=== PATIENT | male | born 1960 | race Hispanic/Latino ===

== ENCOUNTER 2020-03-08 01:47 | Emergency (ER) | payer OTHER ==
--- OUTSIDE RECORDS SUMMARY | 2020-03-08 01:49 | XMS REPORT ---
:1960 Author Organization eClinicalWorks Care Team Providers Name Role Phone Bay Strong Provider Role Unavailable Allergies No Known Allergies Problems Problem Type Condition Code Onset Dates Condition Statu s Problem Primary osteoarthritis of left knee M17.12 Active Medications No Known Medications Results No Known Results Summary Purpose eClinicalWorks Submission
--- OUTSIDE RECORDS SUMMARY | 2020-03-08 01:49 | XMS REPORT ---
:1960 Author Organization eClinicalWorks Care Team Providers Name Role Phone [facility] Strong Provider Role Unavailable Allergies No Known Allergies Problems Problem Type Condition Code Onset Dates Condition Statu s Assessment Primary osteoarthritis of left knee M17.12 Active Problem Primary osteoarthritis of left knee M17.12 Active Medications No Known Medications Results No Known Results Summary Purpose eClinicalWorks Submission
--- OUTSIDE RECORDS SUMMARY | 2020-03-08 01:49 | XMS REPORT ---
:1960 Author Organization eClinicalWorks Care Team Providers Name Role Bay Casillas Provider Role Unavailable Allergies, Adverse Reactions, Alerts Substance Reaction Event Type N.K.D.A. Info Not Available Non Drug Allergy Problems Problem Type Condition Code Onset Dates Condition Statu s Assessment Pain, joint, knee, left M25.562 Acti ve Problem Primary osteoarthritis of left knee M17.12 Active Assessment Primary osteoarthritis of left knee M17.12 Active Medications Medication Code Code Instructions Start End Status Dosage System Date Date Ibuprofen [facility] 46964018169 800 MG Oral Active TAKE 1 TABLET BY MOUTH TWICE A DAY NEEDED FOR PAIN Proctosol HC [facility] 02274582273 2.5 % Rectal Active 1 APPLICATOR FULL PER RECTUM TWICE A DAY Phenytoin [facility] [id number] 100 MG Oral Active TAKE 2 Sodium CAPSULES IN Extended THE MORNING AND 1 CAPSULE EVERY PM Results No Known Results Summary Purpose eClinicalWorks Submission
--- OUTSIDE RECORDS SUMMARY | 2020-03-08 01:49 | XMS REPORT | Continuity of Care Document ---
:1960 Author Organization [facility] t Address [address] [place] [address] Care Team Providers Name Role Phone Unavailable Unavailable Unavailable Problems Condition Condition Condition Status Onset Resolution Last Treating Co mments Source Name Details Category Date Date Treatment Clinician Date Primary Primary Problem Active [facility] oste[facility] osteoarthr Rina [facility] left knee left knee l [facility] ent Clinics Allergies, Adverse Reactions, Alerts This patient has no known allergies or adverse reactions. Medications Ordered Filled Start Stop Current Ordering Indication Dosage Frequency Signature Comments Components Source Medication Medication Date Date Medication? Clinician (SIG) Name Name Ibuprofen Ibuprofen Yes Bay TAKE [address] [facility] TABLET BY [facility] MOUTH [facility] TWICE A l DAY Outpati NEEDED FOR ent PAIN Clinics Proctosol Proctosol Yes Bay [address] [facility] [address] [facility] APPLICATOR [facility] - FULL PER [facility] RECTUM l TWICE A Outpati DAY ent Clinics Phenytoin Phenytoin Yes Bay TAKE [address] [facility] Sodium Sodium Strong CAPSULES [facility] - Extended Extended IN THE Mem[facility] ia MORNING l AND 1 Outpati CAPSULE ent EVERY PM Clinics Procedures This patient has no known procedures. Encounters Start End Encounter Admission Attending Care Care Encounter Source Date/Time Date/Time Type Type Clinicians Facility Department ID 2019-12-31 2019-12-31 Outpatient Victorino Tony [id number] [facility] 11:[facility]:00 11:[facility] ent Clinics 2019-12-30 2019-12-30 Outpatient Victorino Tony [id number] [facility] 15:00:00 15:00[facility] ent Clinics 2019-12-16 2019-12-16 Outpatient Victorino Tony [id number] [facility] 13:50:00 13:50:00 [facility] Clinics 2019-12-14 2019-12-14 Outpatient Victorino Tony [id number] [facility] 11:12:00 11:12:00 [facility] Clinics 2019-12-07 2019-12-07 Outpatient Victorino Tony [id number] [facility] 12:41:00 12:41:00 [facility] Clinics Results This patient has no known results.
[2020-03-08] MEDS ORDERED: ONDANSETRON 4 MG/2 ML VIAL ONE (02:17)
[2020-03-08] MEDS ORDERED: MORPHINE 4 MG/ML SYR ONE (02:17)
[2020-03-08 02:37] LABS: Protime INR 0.97
[2020-03-08 02:40] LABS: Absolute Lymphocytes (CBC) 2.6 K/uL (0.7-4.9); Basophils % 0.5 % (0-1.3); Hematocrit 48.5 % (39.6-49.0); Lymphocytes % 27.3 % (15.3-44.8); MPV 8.5 fL (7.6-11.3); RBC Red Blood Cell Count 4.96 M/uL (4.33-5.43)
[2020-03-08 02:50] LABS: ALT/SGPT 24 U/L (12-78); AST/SGOT 13 U/L (15-37); Alkaline Phosphatase 76 U/L (45-117); BUN Blood Urea Nitrogen 13 mg/dL (7-18); Bicarbonate 25 mmol/L (21-32); Bilirubin Direct 0.1 mg/dL (0-0.2); Bilirubin Total 0.4 mg/dL (0.2-1.0); Glucose Level 128 mg/dL (74-106); Magnesium 2.3 mg/dL (1.8-2.4); NT PRO-BNP 20 pg/mL (<125); Potassium 3.6 mmol/L (3.5-5.1); Protein, Total 7.9 g/dL (6.4-8.2); Sodium Level 142 mmol/L (136-145); Troponin (Emerg Dept Use Only) < 0.02 ng/mL (0.0-0.045)
--- NOTE | 2020-03-08 06:05 | ER ---
Nurse's Notes [facility] Name: James Pickens Age: 59 yrs Sex: Male : 1960 Arrival Date: 03/08/2020 Time: 01:51 Bed 19 Private MD: Pamela Mcclure H Diagnosis: Chest pain, unspecified;Chest Wall Pain Presentation: 03/08 01:54 Chief complaint: Patient states: Chest pain, reports waking up with worse pain, denies sg N/V/D/Fever, reports feeling chills, reports laying flat makes the pain worse, states that standing is the position of most comfort. Coronavirus screen: Proceed with normal triage. Ebola Screen: Patient negative for fever greater than or equal to 101.5 degrees Fahrenheit, and additional compatible Ebola Virus Disease symptoms Patient denies exposure to infectious person. Patient denies travel to an Ebola-affected area in the 21 days before illness onset. No symptoms or risks identified at this time. Initial Sepsis Screen:. Risk Assessment: Do you want to hurt yourself or someone else? Patient reports no desire to harm self or others. Onset of symptoms was March 08, 2020. Care prior to arrival: None. Transition of care: patient was not received from another setting of care. 01:54 Method Of Arrival: Ambulatory sg 01:54 Acuity: JUAREZ 3 sg 02:00 Initial Sepsis Screen: Does the patient meet any 2 criteria? No. Patient's initial wh sepsis screen is negative. Does the patient have a suspected source of infection? No. Patient's initial sepsis screen is negative. Historical: - Allergies: :54 No Known Allergies; sg - Home Meds: :54 Dilantin Oral [Active]; sg - PMHx: :54 Seizures; sg - PSHx: :54 Toe Sx; sg - Immunization history:: Adult Immunizations up to date. - Social history:: Smoking status: Patient denies any tobacco usage or history of. Screenin:10 Abuse screen: Denies threats or abuse. Denies injuries from another. Nutritional rr5 screening: No deficits noted. Tuberculosis screening: No symptoms or risk factors identified. Fall Risk IV access (20 points). Total Cabral Fall Scale indicates No Risk (0-24 pts). Assessment: 02:00 General: Appears in no apparent distress. uncomfortable, Behavior is calm, cooperative, rr5 appropriate for age, Reports chills for. 02:00 Pain: Complains of pain in chest Pain currently is 10 out of 10 on a pain scale. rr5 Quality of pain is described as aching, Pain began gradually, Is intermittent. Neuro: Level of Consciousness is awake, alert, obeys commands, Oriented to person, place, time, situation. Cardiovascular: Reports chest pain, Capillary refill < 3 seconds Patient's skin is warm and dry. Respiratory: Airway is patent Respiratory effort is even, unlabored, Respiratory pattern is regular, symmetrical. GI: No signs and/or symptoms were reported involving the gastrointestinal system. : No signs and/or symptoms were reported regarding the genitourinary system. EENT: No signs and/or symptoms were reported regarding the EENT system. Derm: Skin is intact, is healthy with good turgor, Skin temperature is warm. Musculoskeletal: Circulation, motion, and sensation intact. Capillary refill < 3 seconds. 02:58 Reassessment: Patient appears in no apparent distress at this time. Patient is alert, rr5 oriented x 3, equal unlabored respirations, skin warm/dry/pink. for CT scan Patient states feeling better. Patient states symptoms have improved. 04:00 Reassessment: Patient appears in no apparent distress at this time. Patient and/or family updated on plan of care and expected duration. Pain level reassessed. Patient is alert, oriented x 3, equal unlabored respirations, skin warm/dry/pink. 05:00 Reassessment: Patient appears in no apparent distress at this time. No changes from previously documented assessment. Patient and/or family updated on plan of care and expected duration. Pain level reassessed. Patient is alert, oriented x 3, equal unlabored respirations, skin warm/dry/pink. Explained need for 3 hour repeat Trop. 06:00 Reassessment: Patient appears in no apparent distress at this time. No changes from previously documented assessment. Patient and/or family updated on plan of care and expected duration. Pain level reassessed. Patient is alert, oriented x 3, equal unlabored respirations, skin warm/dry/pink. Patient states feeling better. Patient states symptoms have improved. Vital Signs: 02:00 BP 123 / 71; Pulse 83; Resp 19; Temp 98.2; Pulse Ox 100% ; Weight 99.34 kg; Height 6 rr5 ft. 0 in. (182.88 cm); Pain 10/10; 03:00 BP 113 / 62; Pulse 75; Resp 16; Pulse Ox 99% ; Pain 3/10; rr5 04:00 BP 111 / 56; Pulse 66; Resp 18; Pulse Ox 98% ; wh 05:00 BP 101 / 63; Pulse 63; Resp 18; Pulse Ox 99% on R/A; wh 06:00 BP 102 / 88; Pulse 72; Resp 18; Pulse Ox 100% on R/A; wh 02:00 Body Mass Index 29.70 (99.34 kg, 182.88 cm) rr5 ED Course: 01:51 Patient arrived in ED. es 01:51 Pamela Mcclure DO is Private Physician. es 01:54 Arm band placed on. sg 01:56 Ziggy Barth, RN is Primary Nurse. rr5 01:56 Triage completed. sg 01:57 Thomas Talavera MD is Attending Physician. 7 01:59 EKG done, by ED staff, reviewed by Thomas Talavera MD. sg 02:00 Inserted saline lock: 20 gauge in right forearm, using aseptic technique. Blood rr5 collected. 02:00 No provider procedures requiring assistance completed. Patient maintains SpO2 rr5 saturation greater than 95% on room air. 02:10 Patient has correct armband on for positive identification. Bed in low position. Call rr5 light in reach. trawl net maker on. Pulse ox on. NIBP on. 02:22 XRAY Chest (1 view) In Process Unspecified. EDMS 03:36 CT Chest For PE Angio In Process Unspecified. EDMS 06:12 IV discontinued, intact, bleeding controlled, No redness/swelling at site. Administered Medications: 02:13 Drug: Zofran (Ondansetron) 4 mg Route: IVP; Site: right forearm; rr5 04:54 Follow up: Response: No adverse reaction; Nausea is decreased 02:15 Drug: morphine 4 mg {Note: rass 0.} Route: IVP; Site: right forearm; rr5 04:55 Follow up: Response: No adverse reaction; Pain is decreased; RASS: Alert and Calm (0) Outcome: 06:05 Discharge ordered by MD. mh7 06:12 Discharged to home ambulatory. 06:12 Condition: stable 06:12 Discharge instructions given to patient, Instructed on discharge instructions, follow up and referral plans. no drinking with medication, no driving heavy equipment, medication usage, POC Demonstrated understanding of instructions, follow-up care, medications, POC Prescriptions given X 1. 06:13 Patient left the ED. Signatures: Dispatcher [employer] EDYaw Sandhu RN RN sg Salyer, Edna es Habalo, Winsy Ziggy Barth RN RN rr5 Thomas Talavera MD MD 7 Corrections: (The following items were deleted from the chart) 02:41 02:00 General: Appears in no apparent distress. uncomfortable, Behavior is calm, rr5 cooperative, appropriate for age, rr5
--- NOTE | 2020-03-08 06:06 | EDPHYS ---
Physician Documentation [facility] Name: James Pickens Age: 59 yrs Sex: Male : 1960 Arrival Date: 03/08/2020 Time: 01:51 Bed 19 Private MD: Pamela Mcclure H ED Physician Thomas Talavera HPI: 03/08 02:08 This 59 yrs old Male presents to ER via Ambulatory with complaints of Chest mh7 Pain. 02:08 The patient or guardian reports chest pain that is located primarily in the anterior mh7 chest wall, right. Onset: yesterday. The pain does not radiate. Associated signs and symptoms: Pertinent negatives: abdominal pain, cough, diaphoresis, dizziness, headache, lower extremity pain, lower extremity swelling, lightheadedness, nausea, near syncope, palpitations, recent travel, shortness of breath, syncope, vomiting. The chest pain is described as sharp. Duration: The patient or guardian reports multiple episodes, that are intermittent, that wax and wane, with no pattern. Modifying factors: The symptoms are alleviated by nothing. the symptoms are aggravated by movement. Severity of pain: At its worst the pain was moderate today, in the emergency department the pain has improved mildly. 06:26 States that pain started after lifting a toy car but got worse later. Pain worse with mh7 movement of his body and his right arm.. Historical: - Allergies: 01:54 No Known Allergies; sg - Home Meds: 01:54 Dilantin Oral [Active]; sg - PMHx: 01:54 Seizures; sg - PSHx: 01:54 Toe Sx; sg - Immunization history:: Adult Immunizations up to date. - Social history:: Smoking status: Patient denies any tobacco usage or history of. ROS: 02:08 Constitutional: Negative for fever, chills, and weight loss, Eyes: Negative for injury, mh7 pain, redness, and discharge, ENT: Negative for injury, pain, and discharge, Neck: Negative for injury, pain, and swelling, Respiratory: Negative for shortness of breath, cough, wheezing, and pleuritic chest pain, Abdomen/GI: Negative for abdominal pain, nausea, vomiting, diarrhea, and constipation, Back: Negative for injury and pain, : Negative for injury, bleeding, discharge, and swelling, MS/Extremity: Negative for injury and deformity, Skin: Negative for injury, rash, and discoloration, Neuro: Negative for headache, weakness, numbness, tingling, and seizure, Psych: Negative for depression, anxiety, suicide ideation, homicidal ideation, and hallucinations, Allergy/Immunology: Negative for hives, rash, and allergies, Endocrine: Negative for neck swelling, polydipsia, polyuria, polyphagia, and marked weight changes, Hematologic/Lymphatic: Negative for swollen nodes, abnormal bleeding, and unusual bruising. Exam: 02:08 Constitutional: This is a well developed, well nourished patient who is awake, alert, mh7 and in no acute distress. Head/Face: Normocephalic, atraumatic. Eyes: Pupils equal round and reactive to light, extra-ocular motions intact. Lids and lashes normal. Conjunctiva and sclera are non-icteric and not injected. Cornea within normal limits. Periorbital areas with no swelling, redness, or edema. Neck: Trachea midline, no thyromegaly or masses palpated, and no cervical lymphadenopathy. Supple, full range of motion without nuchal rigidity, or vertebral point tenderness. No Meningismus. 02:08 Cardiovascular: Regular rate and rhythm with a normal S1 and S2. No gallops, murmurs, or rubs. Normal PMI, no JVD. No pulse deficits. Respiratory: Lungs have equal breath sounds bilaterally, clear to auscultation and percussion. No rales, rhonchi or wheezes noted. No increased work of breathing, no retractions or nasal flaring. Abdomen/GI: Soft, non-tender, with normal bowel sounds. No distension or tympany. No guarding or rebound. No evidence of tenderness throughout. Back: No spinal tenderness. No costovertebral tenderness. Full range of motion. Skin: Warm, dry with normal turgor. Normal color with no rashes, no lesions, and no evidence of cellulitis. MS/ Extremity: Pulses equal, no cyanosis. Neurovascular intact. Full, normal range of motion. Neuro: Awake and alert, GCS 15, oriented to person, place, time, and situation. Cranial nerves II-XII grossly intact. Motor strength 5/5 in all extremities. Sensory grossly intact. Cerebellar exam normal. Normal gait. Psych: Awake, alert, with orientation to person, place and time. Behavior, mood, and affect are within normal limits. 02:08 Chest/axilla: Inspection: normal, Palpation: tenderness, that is mild, of the anterior aspect of right upper chest, that partially reproduces the patient's complaints, Axilla: are normal, Lymph nodes: lymphadenopathy is not appreciated. 02:08 ECG was reviewed by the Attending Physician. Vital Signs: 02:00 BP 123 / 71; Pulse 83; Resp 19; Temp 98.2; Pulse Ox 100% ; Weight 99.34 kg; Height 6 rr5 ft. 0 in. (182.88 cm); Pain 10/10; 03:00 BP 113 / 62; Pulse 75; Resp 16; Pulse Ox 99% ; Pain 3/10; rr5 04:00 BP 111 / 56; Pulse 66; Resp 18; Pulse Ox 98% ; wh 05:00 BP 101 / 63; Pulse 63; Resp 18; Pulse Ox 99% on R/A; wh 06:00 BP 102 / 88; Pulse 72; Resp 18; Pulse Ox 100% on R/A; wh 02:00 Body Mass Index 29.70 (99.34 kg, 182.88 cm) rr5 MDM: 02:07 Patient medically screened. mh7 06:00 Differential diagnosis: acute myocardial infarction, acute pericarditis, coronary mh7 artery disease chest wall pain, congestive heart failure esophagitis, myocarditis, pneumonia, pneumothorax, pulmonary embolus. HEART Score: History: Slightly Suspicious (0), ECG: Non specific repolarization disturbance / LBTB / PM (1), Age: > 45 and < 65 years (1), Risk Factors: No Risk Factors Known (0), Troponin: < or = 1 x Normal Limit (0), Total Score = 2. Data reviewed: vital signs, nurses notes, lab test result(s), cardiac enzymes, CBC, electrolytes, urinalysis, EKG, radiologic studies, CT scan, plain films. Data interpreted: petroleum inspector: rate is 63 beats/min, rhythm is normal sinus rhythm, regular, Interpretation: normal rate, normal rhythm, Pulse oximetry: on room air is 99 %. Interpretation: normal. Counseling: I had a detailed discussion with the patient and/or guardian regarding: the historical points, exam findings, and any diagnostic results supporting the discharge/admit diagnosis, lab results, radiology results, the need for outpatient follow up, to return to the emergency department if symptoms worsen or persist or if there are any questions or concerns that arise at home. 06:25 Response to treatment: the patient's symptoms have resolved after treatment, the [facility] patient's blood pressure is in an acceptable range, mental status has returned to baseline, the patient no longer shows bradycardia, the patient is not short of breath, the patient is not tachycardic, the patient's pain is gone, the patient's temperature has normalized. 03/08 02:07 Order name: Basic Metabolic Panel; Complete Time: 02:53 rr5 03/08 02:07 Order name: CBC with Diff; Complete Time: 03:10 rr5 03/08 02:07 Order name: LFT's; Complete Time: 02:53 rr5 03/08 02:07 Order name: Magnesium; Complete Time: 02:53 rr5 03/08 02:07 Order name: NT PRO-BNP; Complete Time: 02:53 rr5 03/08 02:07 Order name: PT-INR; Complete Time: 02:53 rr 03/08 02:06 Order name: EKG; Complete Time: 02:07 sg 03/08 02:07 Order name: Troponin (emerg Dept Use Only); Complete Time: 02:53 rr5 03/08 02:07 Order name: XRAY Chest (1 view) [facility] 03/08 02:07 Order name: Cardiac monitoring; Complete Time: 02:12 rr5 03/08 02:56 Order name: CT Chest For PE Angio [facility] 03/08 04:54 Order name: Troponin (emerg Dept Use Only) 03/08 02:07 Order name: EKG - Nurse/Tech; Complete Time: 02:12 rr03/08 02:07 Order name: IV Saline Lock; Complete Time: 02:12 rr5 03/08 02:07 Order name: Labs collected and sent; Complete Time: 02:12 rr5 03/08 02:07 Order name: O2 Per Protocol; Complete Time: 02:12 rr03/08 02:07 Order name: O2 Sat Monitoring; Complete Time: 02:13 rr5 EC:08 Rate is 80 beats/min. Rhythm is regular, Normal Sinus Rhythm. QRS Campbell is Normal. ID mh7 interval is normal. QRS interval is normal. QT interval is normal. No Q waves. T waves are Flattened in leads II, III, aVF, V6. No ST changes noted. Clinical impression: NSR w/ Non-specific ST/T Changes. Administered Medications: 02:13 Drug: Zofran (Ondansetron) 4 mg Route: IVP; Site: right forearm; rr5 04:54 Follow up: Response: No adverse reaction; Nausea is decreased 02:15 Drug: morphine 4 mg {Note: rass 0.} Route: IVP; Site: right forearm; rr5 04:55 Follow up: Response: No adverse reaction; Pain is decreased; RASS: Alert and Calm (0) Disposition: 03/08/20 06:05 Discharged to Home. Impression: Chest pain, unspecified, Chest Wall Pain. - Condition is Stable. - Discharge Instructions: Chest Wall Pain, [id number], Nonspecific Chest Pain, [id number]. - Prescriptions for Tramadol 50 mg Oral Tablet - take 1 tablet by ORAL route every 8 hours as needed; 12 tablet. - Medication Reconciliation Form, Thank You Letter, Antibiotic Education, Prescription Opioid Use form. - Follow up: Private Physician; When: 1 - 2 days; Reason: Worsening of condition, Recheck today's complaints, Re-evaluation by your physician. - Problem is an ongoing problem. - Symptoms have improved. Signatures: Dispatcher [employer] EDMS Yaw Dickey, RN HELEN Danuta Joyner Ziggy Barth RN RN rr5 Thomas Talavera MD MD mh7 Corrections: (The following items were deleted from the chart) 06:13 06:05 03/08/2020 06:05 Discharged to Home. Impression: Chest pain, unspecified; Chest wh Wall Pain. Condition is Stable. Forms are Medication Reconciliation Form, Thank You Letter, Antibiotic Education, Prescription Opioid Use. Follow up: Private Physician; When: 1 - 2 days; Reason: Worsening of condition, Recheck today's complaints, Re-evaluation by your physician. Problem is an ongoing problem. Symptoms have improved. mh7
[2020-03-08 06:23] VITALS: TEMP 98.2
[2020-03-08 06:29] VITALS: BP 102/88; O2SAT 100
--- NOTE | 2020-03-08 06:53 | EKG ---
Test Date: 2020-03-08 Test Time: 01:56:58 Film And Video Editor: RICHA MEASUREMENT RESULTS: Intervals: Rate: 80 WV: 136 QRSD: 78 QT: 368 QTc: 424 Freedom: P: 29 WV: 136 QRS: -16 T: 13 INTERPRETIVE STATEMENTS: Normal sinus rhythm Nonspecific T wave abnormality Abnormal ECG Compared to ECG 06/13/2000 12:50:00 T-wave abnormality now present Electronically Signed On 03-08-20 06:53:10 CDT by Niko Lemos
--- NOTE | 2020-03-08 08:14 | RAD REPORT ---
EXAM DESCRIPTION: RAD - Chest Single View - 03/08/2020 2:22 am CLINICAL HISTORY: CHEST PAIN COMPARISON: Two view chest October 2013 TECHNIQUE: AP portable chest image was obtained 03/08/2020 2:22 am . FINDINGS: No focal lung parenchymal process. Interstitial pattern matches comparison when you just f or the more shallow inspiratory effort on the current examination. Heart and vasculature are normal. No measurable pleural effusion and no pneumothorax. No acute bony abnormality seen. No acute aortic f inding. The patient has a very large hiatal hernia which exaggerates cardiac silhouette. IMPRESSION: No acute cardiopulmonary process. No worrisome change from comparison.
--- NOTE | 2020-03-08 10:43 | RAD REPORT ---
EXAM DESCRIPTION: CT - Chest For Pe Angio - 03/08/2020 7:05 am CLINICAL HISTORY: CHEST PAIN COMPARISON: None. TECHNIQUE: CT CHEST ANGIOGRAPHY WITH IV CONTRAST on 03/08/2020 2:56 AM CDT. MIPS reconstructions were generated. This exam was performed according to our departmental dose-optimization program, which includes autom ated exposure control, adjustment of the mA and/or kV according to patient size and/or use of iterati ve reconstruction technique. MIP images were generated. FINDINGS: Thoracic aorta is normal in course and caliber without aneurysm or dissection. Pulmonary a rteries are adequately opacified without acute or chronic filling defects. The heart is normal in size. There is no pericardial effusion. Intrathoracic lymph nodes are not enla rged. There is no pleural effusion, pleural thickening or pneumothorax. Central airways are patent. Lungs a re clear with no consolidation, mass or interstitial lung disease. There is a large hiatal hernia containing much of the stomach. There are no acute osseous findings. No suspicious bony lesions. IMPRESSION: No aortic dissection or aneurysm. No pulmonary embolus. No pneumonia. Large hiatal hernia. Electronically signed by: Joe Curtis MD 03/08/2020 3:42 AM CDT Due to temporary technical issues with the PACS/Fluency reporting system, reports are being signed by the in house radiologist without review as a courtesy to ensure prompt reporting. The interpreting r adiologist is fully responsible for the content of the report.
== END 2020-03-08 06:13 | disposition home or self-care (01) ==
LOC: ER 01:47
DX: R07.89 Other chest pain (principal)
CPT/HCPCS: 93005; 85025; 80048; 36415; 83735; 85610; 80076; 84484 ×2; 83880; 71275; 71045; 96375; 96374; 99285; Q9967; J2405

== ENCOUNTER 2021-09-11 11:21 | Emergency (ER) | payer OTHER ==
--- OUTSIDE RECORDS SUMMARY | 2021-09-11 11:23 | XMS REPORT | Continuity of Care Document ---
:1960 Author Organization [facility] t Address [address] [place] [address] Care Team Providers Name Role Phone Unavailable Unavailable Unavailable Problems This patient has no known problems. Allergies, Adverse Reactions, Alerts This patient has [...] Date/Time Type Type Clinicians Facility Department ID 2020-11-06 2020-11-06 Outpatient [facility] [id number] [facility] 2019-12-31 2019-12-31 Outpatient Victorino Tony [id number] [facility] 11:41:00 11:[facility]00 [facility]ics 2019-12-30 2019-12-30 Outpatient Victorino Tony [id number] [facility] 15:00:00 15:00:00 [facility] Clinics 2019-12-16 2019-12-16 Outpatient Victorino Tony [id number] [facility] 13:50:00 13:50:00 [facility] Clinics 2019-12-14 2019-12-14 Outpatient Victorino Tony [id number] [facility] 11:12:00 11:12:00 [facility] Clin[facility] 2019-12-07 2019-12-07 Outpatient Victorino Tony [id number] [facility] 12:41:00 12:41:00 [facility] Results This patient has no known results.
--- NOTE | 2021-09-11 13:16 | RAD REPORT ---
EXAM DESCRIPTION: CT - Head Brain Wo Cont - 09/11/2021 12:54 pm CLINICAL HISTORY: HEADACHE COMPARISON: MRI BRAIN W WO CONTRAST dated 11/14/2011 TECHNIQUE: Axial 5 mm thick images of the head were obtained without IV contrast. All CT scans are performed using dose optimization technique as appropriate and may include automated exposure control or mA/KV adjustment according to patient size. FINDINGS: No intracranial hemorrhage, mass, edema or shift of mid-line structures. No acute cortical based infarction. No cortical edema or sulcal effacement. Encephalomalacia changes are present at th e right side frontal parietal junction extending inferiorly into the right temporal lobe. Right later al ventricle has enlarged in proportion to the amount of encephalomalacia. These are findings stable from 2012. No abnormal extra-axial fluid collections. Arterial and physiologic calcifications are pre sent. Mastoid air cells and visualized portions of the paranasal sinuses are clear. No acute bony findings. IMPRESSION: No hemorrhage, acute cortical based infarction or other acute intracranial finding. Encephalomalacia changes in the right frontoparietal junction extending into the temporal lobe unchan ged from 2011.
[2021-09-11 15:05] LABS: SARS-COV-2 RT PCR NEGATIVE (NEGATIVE)
--- NOTE | 2021-09-11 15:13 | EDPHYS ---
Physician Documentation [facility] Name: James Pickens Age: 61 yrs Sex: Male : 1960 Arrival Date: 09/11/2021 Time: 11:27 Bed 10 Private MD: Pamela Mcclure H ED Physician Max Cesar HPI: 09/11 15:07 This 61 yrs old Male presents to ER via Ambulatory with complaints of Headache.rn 15:07 The patient complains of pain to the top of head and forehead. The patient describes rn the headache as aching. 15:07 Onset: The symptoms/episode began/occurred 2 day(s) ago. Associated signs and symptoms: rn Pertinent negatives: altered mental status, neck stiffness, rash, vision changes, vision loss, vomiting, weakness, vertigo. Severity of symptoms: At its worst the pain was moderate, in the emergency department the pain has improved. Headache History: The patient has had previous headaches and this one is similar to previous episodes. The symptoms are alleviated by nothing. the symptoms are aggravated by nothing. The patient has experienced similar episodes in the past. The patient has not recently seen a physician. Patient reports headache for the last 2 days, no trauma, no objective fever. 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 Reports pressure to head that is worse when squeezing his head. Onset of headache was while using anal vibrator. No focal neurological deficits. Seen by [facility] and told to come to ER.. Historical: - Allergies: 11:35 No Known Allergies; [facility] - Home Meds: 12:40 Phenytoin 100mg Oral 3 tabs nightly for epilepsy [Active]; eo2 - PMHx: 12:40 Seizure; Pt reports hx of epilepsy; eo2 - Immunization history:: Client reports receiving the 2nd dose of the Covid vaccine. - Social history:: Smoking status: unknown Patient uses alcohol, occasionally. street drugs, marijuana. - Family history:: not pertinent. - Hospitalizations: : No recent hospitalization is reported. ROS: 15:07 Constitutional: Negative for chills, and weight loss, Eyes: Negative for injury, pain, rn redness, and discharge, ENT: Negative for injury, pain, and discharge, Neck: Negative for injury, pain, and swelling, Cardiovascular: Negative for chest pain, palpitations, and edema, Respiratory: Negative for shortness of breath, cough, wheezing, and pleuritic chest pain, Abdomen/GI: Negative for abdominal pain, nausea, vomiting, diarrhea, and constipation, Back: Negative for injury and pain, : Negative for injury, bleeding, discharge, and swelling, MS/Extremity: Negative for injury and deformity, Skin: Negative for injury, rash, and discoloration, Neuro: Negative for weakness, numbness, tingling, and seizure. Exam: 15:07 Constitutional: This is a well developed, well nourished patient who is awake, alert, rn and in no acute distress. Head/Face: Normocephalic, atraumatic. Eyes: Periorbital areas with no swelling, redness, or edema. Neck: Trachea midline, no thyromegaly or masses palpated, and no cervical lymphadenopathy. Supple, full range of motion without nuchal rigidity, or vertebral point tenderness. No Meningismus. Cardiovascular: Regular rate and rhythm. No pulse deficits. Respiratory: No increased work of breathing, no retractions or nasal flaring. Abdomen/GI: Soft, non-tender Skin: Warm, dry MS/ Extremity: Pulses equal, no cyanosis. Neuro: Awake and alert, GCS 15, oriented to person, place, time, and situation. Cranial nerves II-XII grossly intact. Motor strength 5/5 in all extremities. Sensory grossly intact. Vital Signs: 11:31 BP 138 / 93; Pulse 77; Resp 17; Temp 98.3(T); Pulse Ox 100% ; Weight 98.43 kg; Height 6 [facility] ft. 0 in. (182.88 cm); Pain 0/10; 13:42 BP 126 / 91; Pulse 78; Resp 16; Temp 97.9(O); Pulse Ox 100% ; Pain 3/10; eo2 15:37 BP 115 / 77; Pulse 68; Resp 15; Temp 98.2; Pulse Ox 98% ; Pain 0/10; eo2 11:31 Body Mass Index 29.43 (98.43 kg, 182.88 cm) jh6 Janine Coma Score: 12:26 Eye Response: spontaneous(4). Verbal Response: oriented(5). Motor Response: obeys eo2 commands(6). Total: 15. 15:07 Eye Response: spontaneous(4). Verbal Response: oriented(5). Motor Response: obeys rn commands(6). Total: 15. MDM: 12:31 Patient medically screened. rn 15:07 Differential diagnosis: hypertensive headache, migraine, neoplasm, tension headache, rn trigeminal neuralgia, vasomotor headache. Data reviewed: vital signs, nurses notes, lab test result(s), radiologic studies, CT scan, and as a result, I will discharge patient. Counseling: I had a detailed discussion with the patient and/or guardian regarding: the historical points, exam findings, and any diagnostic results supporting the discharge/admit diagnosis, lab results, radiology results, the need for outpatient follow up, to return to the emergency department if symptoms worsen or persist or if there are any questions or concerns that arise at home. Special discussion: I discussed with the patient/guardian in detail that at this point there is no indication for admission to the hospital. It is understood, however, that if the symptoms persist or worsen the patient needs to return immediately for re-evaluation. 09/11 12:41 Order name: CT Head Brain wo Cont; Complete Time: 13:25 rn 09/11 12:41 Order name: Strep; Complete Time: 14:46 rn 09/11 14:23 Order name: COVID-19/FLU A+B; Complete Time: 15:06 EDMS 09/11 14:34 Order name: Throat Culture EDMS Administered Medications: No medications were administered Disposition Summary: 09/11/21 15:12 Discharge Ordered Location: Home rn Problem: new rn Symptoms: have improved rn Condition: Stable rn Diagnosis - Headache rn Followup: rn - With: Private Physician - When: As needed - Reason: Recheck today's complaints, Re-evaluation by your physician Discharge Instructions: - Discharge Summary Sheet rn - General Headache Without Cause rn Forms: - Medication Reconciliation Form rn - Thank You Letter rn - Antibiotic video intern - Prescription Opioid Use rn Signatures: Dispatcher [employer] EDMS Max Cesar MD MD rn Hastedt, Jennifer, RN RN 6 Gricel Santos RN RN eo2 Corrections: (The following items were deleted from the chart) 11:36 11:35 PMHx: Seizures; [place] [id number] 14:23 12:42 Influenza Screen (A \T\ B)+BA.LAB.BRZ ordered. EDMS EDMS 14:23 12:42 CORONAVIRUS+MR.BJ.BART ordered. EDMS EDMS
--- NOTE | 2021-09-11 15:13 | ER ---
Nurse's Notes [facility] Name: James Pickens Age: 61 yrs Sex: Male : 1960 Arrival Date: 09/11/2021 Time: 11:27 Bed 10 Private MD: Pamela Mcclure H Diagnosis: Headache Presentation: 09/11 11:31 Chief complaint: Patient states: pt states that he has had pain to his head x 2 days. jh6 states low grade fever but no other fls. Coronavirus screen: Vaccine status: Patient reports receiving the 2nd dose of the covid vaccine. Ebola Screen: No symptoms or risks identified at this time. Initial Sepsis Screen: Does the patient meet any 2 criteria? No. Patient's initial sepsis screen is negative. Does the patient have a suspected source of infection? No. Patient's initial sepsis screen is negative. Risk Assessment: Do you want to hurt yourself or someone else? Patient reports no desire to harm self or others. Onset of symptoms was September 09, 2021. 11:31 Method Of Arrival: Ambulatory [facility] 11:31 Acuity: JUAREZ 4 [facility] Triage Assessment: 11:36 Headache History: Denies prior headaches. General: Appears in no apparent distress. [facility] distressed, Behavior is calm, cooperative. Pain: Complains of pain in face Pain does not radiate. Pain currently is 0 out of 10 on a pain scale. Quality of pain is described as aching, Pain began 2-3 days ago. Also complains of no other associated symptoms. Neuro: No deficits noted. Historical: - Allergies: 11:35 No Known Allergies; [facility] - Home Meds: 12:40 Phenytoin 100mg Oral 3 tabs nightly for epilepsy [Active]; eo2 - PMHx: 12:40 Seizure; Pt reports hx of epilepsy; eo2 - Immunization history:: Client reports receiving the 2nd dose of the Covid vaccine. - Social history:: Smoking status: unknown Patient uses alcohol, occasionally. street drugs, marijuana. - Family history:: not pertinent. - Hospitalizations: : No recent hospitalization is reported. Screenin:26 Abuse screen: Denies threats or abuse. Nutritional screening: No deficits noted. eo2 Tuberculosis screening: No symptoms or risk factors identified. Fall Risk None identified. Assessment: 12:26 General: Appears in no apparent distress. comfortable. Pain: Complains of pain in head eo2 Pain level that patient reports is acceptable is 3 out of 10 on a pain scale. Pain began 2-3 days ago. Neuro: Reports headache in entire Per pt, " I used my anal vibrator Friday morning, and Friday night I started having a headache". Pt states he also had a "low grade fever-99.1 yesterday and took two tylenols" Pt states he spoke with a telehealth provider who advised him to get checked for "bacteria in my blood and a scan of my head" Pt denies N/V/D, CP,SOB. Speech clear, tongue midline, equal strength to all extremities, ambulated to room from triage. Cardiovascular: No deficits noted. Heart tones S1 S2. Respiratory: No deficits noted. Breath sounds are clear bilaterally. GI: Reports acid reflux episode 3 weeks ago, states he's uncertain if this is also causing his headache. EENT: Reports increased ear wax. Vital Signs: 11:31 BP 138 / 93; Pulse 77; Resp 17; Temp 98.3(T); Pulse Ox 100% ; Weight 98.43 kg; Height 6 [facility] ft. 0 in. (182.88 cm); Pain 0/10; 13:42 BP 126 / 91; Pulse 78; Resp 16; Temp 97.9(O); Pulse Ox 100% ; Pain 3/10; eo2 15:37 BP 115 / 77; Pulse 68; Resp 15; Temp 98.2; Pulse Ox 98% ; Pain 0/10; eo2 11:31 Body Mass Index 29.43 (98.43 kg, 182.88 cm) [facility] Dawson Coma Score: 12:26 Eye Response: spontaneous(4). Verbal Response: oriented(5). Motor Response: obeys eo2 commands(6). Total: 15. 15:07 Eye Response: spontaneous(4). Verbal Response: oriented(5). Motor Response: obeys rn commands(6). Total: 15. ED Course: 11:27 Patient arrived in ED. mr 11:27 Pamela Mcclure DO is Private Physician. mr 11:35 Triage completed. [facility] 11:36 Arm band placed on right wrist. [facility] 12:12 Gricel Santos, HELEN is Primary Nurse. eo2 12:26 Patient has correct armband on for positive identification. Bed in low position. Call eo2 light in reach. Door closed. Noise minimized. 12:31 Max Cesar MD is Attending Physician. rn 12:53 CT Head Brain wo Cont In Process Unspecified. EDMS 13:04 Strep Sent. eo2 13:43 Pulse ox on. NIBP on. mh5 14:28 Strep Sent. eo2 14:28 COVID-19/FLU A+B Sent. eo2 15:36 No provider procedures requiring assistance completed. Patient did not have IV access eo2 during this emergency room visit. Administered Medications: No medications were administered Outcome: 15:12 Discharge ordered by MD. rn 15:36 Discharged to home ambulatory. eo2 15:36 Condition: stable 15:36 Discharge instructions given to patient, Instructed on discharge instructions, follow up and referral plans. Demonstrated understanding of instructions, follow-up care. 15:38 Patient left the ED. eo2 Signatures: Dispatcher [employer] EDKS Virginia Curry mr Max Cesar MD MD rn Martinez, Maria [facility] Kristi Montano RN RN [facility] Gricel Santos RN RN eo2 Corrections: (The following items were deleted from the chart) 11:36 11:35 PMHx: Seizures; [place] [id number] 14:23 13:04 CORONAVIRUS+MR.LAB.BRZ drawn and sent. eo2 EDMS 14:23 13:04 Influenza Screen (A \\T\\ B)+BA.LAB.BRZ drawn and sent. eo2 EDMS 14:50 13:42 BP 126 / 91; Pulse 78bpm; Resp 16bpm; Pulse Ox 100%; Temp 97.9F Oral; 5 eo2 14:51 12:26 Neuro: Reports headache in entire Per pt, " I used my anal vibrator Friday eo2 morning, and day night I started having a headache". Pt states she also had a "low grade fever-99.1 yesterday and took two tylenols" Pt states he spoke with a telehealth provider who advised him to get checked for "bacteria in my blood and a scan of my head" Pt denies N/V/D, CP,SOB. Speech clear, tongue midline, equal strength to all extremities, ambulated to room from triage eo2
[2021-09-11 15:45] VITALS: BP 115/77; TEMP 98.2; O2SAT 98
== END 2021-09-11 15:38 | disposition home or self-care (01) ==
LOC: ER 11:21
DX: R51.9 Headache, unspecified (principal); Z20.822 Contact with and (suspected) exposure to COVID-19
CPT/HCPCS: 87070; 87081; 0240U; 70450; 99284

== ENCOUNTER 2024-02-20 09:53 | Emergency (ER) | payer OTHER ==
--- OUTSIDE RECORDS SUMMARY | 2024-02-20 09:56 | XMS REPORT | Continuity of Care Document ---
Author Name Unknown Address [address] [facility] [place]. [address] [place] [address] [facility] Address [address] [facility]. [address] [place] [address] Care Team Providers Care Automotive Service Advisor Name Role Phone Pamela Mcclure Primary Care Physician [phone] Pamela Mcclure Attending Clinician Unavailable Gennaro Attending Clinician Unavail able Og Dick S Attending Clinician Unavailab Frankie Dc PA-C Attending Clinician [phone] FRANKIE JOSHI Attending Clinician Unavailable Unknown, Attending Attending Clinician Unavailab le Doctor Unassigned, [place] Attending Clinician U navailable Pamela Mcclure Admitting Clinician Unavailable Gennaro Admitting Clinician Unavail able Og Dick S Admitting Clinician Unavailab le Payers Payer Name Policy Type Policy Number Effective Date Expirati on Date Source AET[employer] (MEDICARE REPLACEMENT PPO) [id number] 2023 00:00:00 [employer] C1 [id number] [facility] Problems Condition Name Condition Details Condition Category Status Onset Date Resolution Date Last Treatment Date Treating Clinician Comments Source Postoperat melanie pain Postoperat melanie Pain Problem Active 2022-09 00:00: 00 [facility] 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 Osteoarthr itis of Joint of Right Wrist Problem Active 2022-09 00:00: 00 [facility] Closed fracture of multiple carpal bones Closed Fracture of Multiple Carpal Bones Problem Active 2022-09 00:00: 00 [facility] Pain of right wrist Pain of Right Wrist Problem Active 2022-09 00:00: 00 [facility] [id number] Primary osteoarthr itis of left knee Problem Active [facility] Allergies, Adverse Reactions, Alerts Allergy Name Allergy Type Status Severity Reaction(s) Onset Date Inactive Date Treating Clinician Comments Source No Known Allergie s DA Active U 2022-09 00:00: 00 [facility] NO KNOWN ALLERGIE S Drug Class Active [facility] Social History Social Habit Start Date Stop Date Quantity Comments Source History of Tobacco Use [facility] Sexual orientation U [facility] Tobacco use and exposure 2023-08-07 00:00:00 2023-08-07 00:00:00 Smokeless tobacco non-user [facility] History of Social function 2023-08-07 00:00:00 2023-08-07 00:00:00 [facility] Sex Assigned At 1960 00:00:00 1960 00:00:00 [facility] Smoking Status Start Date Stop Date Source Never Smoker [facility] Medications Ordered Medication Name Filled Medication Name Start Date Stop Date Current Medication? Ordering Clinician Indication Dosage Frequency Signature (SIG) Comments Components Source ibuprofen (IBU) tablet 800 mg 2022-09 23:45: 00 08-07 22:59 :00 No [id number] 800mg [facility] phenytoin Extended 100 mg capsule 0 6 00:00: 00 Yes [facility] Proctosol HC Proctosol HC Yes [facility] 1 APPLICATOR FULL PER RECTUM TWICE A DAY [facility] Phenytoin Sodium Extended Phenytoin Sodium Extended Yes [facility] TAKE 2 CAPSULES IN THE MORNING AND 1 CAPSULE EVERY PM [facility] Proctosol HC 2.5 % Proctosol HC 2.5 % No Proctosol HC 2.5 % benzonatate 100 mg capsule TAKE 1 CAPSULE BY MOUTH 3 TIMES A DAY IF NEEDED FOR COUGH FOR UP TO 7 DAYS. DO NOT CRUSH OR CHEW. benzonatate 100 mg capsule TAKE 1 CAPSULE BY MOUTH 3 TIMES A DAY IF NEEDED FOR COUGH FOR UP TO 7 DAYS. DO NOT CRUSH OR CHEW. No benzonatat e 100 mg capsule TAKE 1 CAPSULE BY MOUTH 3 TIMES A DAY IF NEEDED FOR COUGH FOR UP TO 7 DAYS. DO NOT CRUSH OR CHEW. [facility] phenytoin sodium extended 100 mg capsule TAKE 3 CAPSULES BY MOUTH AT BEDTIME phenytoin sodium extended 100 mg capsule TAKE 3 CAPSULES BY MOUTH AT BEDTIME No phenytoin sodium extended 100 mg capsule TAKE 3 CAPSULES BY MOUTH AT BEDTIME [facility] promethazin e-DM 6.25 mg-15 mg/5 mL oral syrup TAKE 5 ML BY MOUTH EVERY 6 HOURS NEEDED FOR COUGH promethazin e-DM 6.25 mg-15 mg/5 mL oral syrup TAKE 5 ML BY MOUTH EVERY 6 HOURS NEEDED FOR COUGH No promethazi ne-DM 6.25 mg-15 mg/5 mL oral syrup TAKE 5 ML BY MOUTH EVERY 6 HOURS NEEDED FOR COUGH [facility] sulfamethox azole 800 mg-trimetho prim 160 mg tablet TAKE 1 TABLET BY MOUTH TWICE A DAY sulfamethox azole 800 mg-trimetho prim 160 mg tablet TAKE 1 TABLET BY MOUTH TWICE A DAY No sulfametho xazole 800 mg-trimeth oprim 160 mg tablet TAKE 1 TABLET BY MOUTH TWICE A DAY [facility] fluocinolon e acetonide oil 0.01 % ear drops INSTILL 4-5 DROPS INTO BOTH EARS 2-3 TIMES A DAY FOR 7 DAYS. fluocinolon e acetonide oil 0.01 % ear drops INSTILL 4-5 DROPS INTO BOTH EARS 2-3 TIMES A DAY FOR 7 DAYS. No fluocinolo ne acetonide oil 0.01 % ear drops INSTILL 4-5 DROPS INTO BOTH EARS 2-3 TIMES A DAY FOR 7 DAYS. [facility] fluticasone propionate 50 mcg/actuati on nasal spray,suspe nsion PLEASE SEE ATTACHED FOR DETAILED DIRECTIONS fluticasone propionate 50 mcg/actuati on nasal spray,suspe nsion PLEASE SEE ATTACHED FOR DETAILED DIRECTIONS No fluticason e propionate 50 mcg/actuat ion nasal spray,susp ension PLEASE SEE ATTACHED FOR DETAILED DIRECTIONS [facility] ketoconazol e 2 % topical cream APPLY TO AFFECTED AREAS ONCE DAILY UNTIL RESOLVED THEN ONCE WEEKLY ketoconazol e 2 % topical cream APPLY TO AFFECTED AREAS ONCE DAILY UNTIL RESOLVED THEN ONCE WEEKLY No ketoconazo le 2 % topical cream APPLY TO AFFECTED AREAS ONCE DAILY UNTIL RESOLVED THEN ONCE WEEKLY [facility] ketoconazol e 200 mg tablet TAKE 1 TABLET BY MOUTH EVERY DAY ketoconazol e 200 mg tablet TAKE 1 TABLET BY MOUTH EVERY DAY No ketoconazo le 200 mg tablet TAKE 1 TABLET BY MOUTH EVERY DAY [facility] acetaminoph en 300 mg-codeine 30 mg tablet acetaminoph en 300 mg-codeine 30 mg tablet No acetaminop hen 300 mg-codeine 30 mg tablet [facility] amoxicillin 500 mg capsule TAKE 1 CAPSULE (500 MG) BY ORAL ROUTE 4 TIMES PER DAY UNTIL ALL TAKEN. amoxicillin 500 mg capsule TAKE 1 CAPSULE (500 MG) BY ORAL ROUTE 4 TIMES PER DAY UNTIL ALL TAKEN. No amoxicilli n 500 mg capsule TAKE 1 CAPSULE (500 MG) BY ORAL ROUTE 4 TIMES PER DAY UNTIL ALL TAKEN. [facility] hydrocodone 5 mg-acetamin ophen 325 mg tablet Take 1 tablet every 6 hours by oral route as needed. hydrocodone 5 mg-acetamin ophen 325 mg tablet Take 1 tablet every 6 hours by oral route as needed. No hydrocodon e 5 mg-acetami nophen 325 mg tablet Take 1 tablet every 6 hours by oral route as needed. [facility] Ibuprofen Ibuprofen Yes [facility] TAKE 1 TABLET BY MOUTH TWICE A DAY NEEDED FOR PAIN [facility] Vital Signs Vital Name Observation Time Observation Value Comments S ource BMI (Body Mass Index) 2024-02-13 00:00:00 28.5 kg/m2 [facility] Body Weight 2024-02-13 00:00:00 210 [lb_av] [facility] Height 2024-02-13 00:00:00 72 [in_i] [facility] Body Weight 2023-10-17 00:00:00 210 [lb_av] [facility] BMI (Body Mass Index) 2023-10-17 00:00:00 28.5 kg/m2 [facility] Height 2023-10-17 00:00:00 72 [in_i] [facility] BMI (Body Mass Index) 2023-09-10 00:00:00 28.5 kg/m2 [facility] Body Weight 2023-09-10 00:00:00 210 [lb_av] [facility] Height 2023-09-10 00:00:00 72 [in_i] [facility] Body Weight 2023-08-25 00:00:00 210 [lb_av] [facility] BMI (Body Mass Index) 2023-08-25 00:00:00 28.5 kg/m2 [facility] Height 2023-08-25 00:00:00 72 [in_i] [facility] BMI (Body Mass Index) 2023-08-20 00:00:00 28.5 kg/m2 [facility] Height 2023-08-20 00:00:00 72 [in_i] [facility] Body Weight 2023-08-20 00:00:00 210 [lb_av] [facility] Systolic blood pressure 2023-08-07 22:14:00 135 mm[Hg[facility] Diastolic blood pressure 2023-08-07 22:14:00 86 mm[Hg] [facility] Heart rate 2023-08-07 22:14:00 84 /min [facility] Body temperature 2023-08-07 22:14:00 37.56 Michelle [facility] Respiratory rate 2023-08-07 22:14:00 14 /min [facility] Body weight 2023-08-07 22:14:00 98.884 kg [facility] BMI 2023-08-07 22:14:00 29.57 kg/m2 [facility] Oxygen saturation in Arterial blood by Pulse oximetry 2023-08-07 22:14:00 96 /min [place] [facility] Procedures Procedure Date / Time Performed Performing Clinician Source XR, wrist, 3 or more view 2024-02-13 00:00:00 [facility] XR, wrist, 3 or more view 2023-10-17 00:00:00 [facility] XR, wrist, 3 or more view 2023-09-10 00:00:[address] [facility] [address], wrist, w/o contrast 2023-08-20 00:00:00 [facility] XR WRIST 3+ VW RIGHT 2023-08-07 23:05:39 Frankie Joshi [facility] ASSIGNMENT OF BENEFITS 2023-08-07 21:46:10 Docto r Unassigned, [place] [facility] Colonoscopy 2021-07-18 00:00:00 [facility] Encounters Start Date/Time End Date/Time Encounter Type Admission Type Attending Clinicians Care Facility Care Department Encounter ID Source 2021-10-24 12:30:50 Outpatient Ren Pamela [facility] [id number] [facility] 2021-10-24 11:13:15 Outpatient Ren Pamela [facility] [id number] [facility] 2024-02-13 00:00:00 2024-02-13 00:00:00 Og Dick MD: [address] [place] [address] , Ph. [phone] [place] [facility] [place] [facility] [id number] [facility] 2023-10-17 00:00:00 2023-10-17 00:00:00 Og Dick MD: [address] [place] [address] , Ph. [phone] [place] [facility] [place] [facility]_[address] [id number] [facility] 2023-09-30 00:00:00 2023-09-30 00:00:00 Outpatient FOG_Gharbao ui_Idr_MD AOSM AO [id number] [facility] 2023-09-10 00:00:00 2023-09-10 00:00:00 Outpatient FOG_Gharbao ui_Idr_MD AOSM AO [id number] [facility] 2023-09-10 00:00:00 2023-09-10 00:00:00 Og Dick MD: [address] [place] [address] , Ph. [phone] [place] [facility] [place] [facility] [address] [place] [id number] [facility] 2023-09-09 00:00:00 2023-09-09 00:00:00 Outpatient FOG_Gharbao ui_Idr_MD AOSM AO [id number] [facility] 2023-09-08 00:00:00 2023-09-08 00:00:00 Outpatient FOG_Gharbao ui_Idr_MD AOSM AO [id number] [facility] 2023-09-02 09:07:00 2023-09-02 09:07:00 Outpatient Og Worthy [facility] DAYS [id number] 28 [facility] [place] [facility] 2023-09-02 00:00:00 2023-09-02 00:00:00 Og Dick MD: [address] [place] [address] , Ph. [phone] [place] [facility] [place] [facility]_Surgery [id number] [facility] 2023-08-28 00:00:00 2023-08-28 00:00:00 Outpatient FOG_Gharbao ui_Idr_MD AOSM AOSM [id number] [facility] 2023-08-27 00:00:00 2023-08-27 00:00:00 Outpatient FOG_Gharbao ui_Idr_MD AOSM AOSM [id number] [facility] 2023-08-25 00:00:00 2023-08-25 00:00:00 Og Dick MD: [address] [place] [address] , Ph. [phone] AOSM [place] [facility] [place] [facility] [address] [place] [id number] [facility] 2023-08-22 00:00:00 2023-08-22 00:00:00 Outpatient FOG_Gharbao ui_Idr_MD AOSM AOSM [id number] [facility] 2023-08-22 00:00:00 2023-08-22 00:00:00 Outpatient FOG_Gharbao ui_Idr_MD AOSM AOSM [id number] [facility] 2023-08-20 14:00:00 2023-08-20 14:00:00 Outpatient Og Worthy [facility] [id number] [address] [place] [address] [facility] 2023-08-20 00:00:00 2023-08-20 00:00:00 Outpatient FOG_Gharbao ui_Idr_MD AOSM AOSM [id number] [facility] 2023-08-20 00:00:00 2023-08-20 00:00:00 Og Dick MD: [address] [place] [address] , Ph. [phone] AOSM [place] [facility] [place] [facility] [address] [place] [id number] [facility] 2023-08-08 00:00:00 2023-08-08 00:00:00 Telephone Frankie Joshi [facility] [id number] [id number] [facility] 2023-08-08 00:00:00 2023-08-08 00:00:00 Telephone Frankie Joshi [facility] [id number] [id number] [facility] 2023-08-07 16:28:27 2023-08-07 23:59:00 Outpatient R MADELYN [facility] [id number] [facility] 2023-08-07 16:28:27 2023-08-07 23:59:00 Hospital En[facility] [id number] [id number] [id number] [facility] 2023-08-07 15:40:00 2023-08-07 16:00:00 Urgent Care Frankie Joshi, Attending [facility] [id number] [id number] [id number] [id number] [facility] 2023-08-07 00:00:00 2023-08-07 00:00:00 Telephone Madelyn [facility] [id number] [id number] [id number] [id number] [facility] 2023-08-07 00:00:00 2023-08-07 00:00:00 Orders Only Doctor Unassigned, [place] [facility] [id number] [id number] [id number] [id number] [facility] 2020-11-06 00:00:00 2020-11-06 00:00:00 (TEL) [facility] [id number] [facility] 2019-12-31 11:41:00 2019-12-31 11:41:00 [facility] [id number] [facility] 2019-12-30 15:00:00 2019-12-30 15:00:00 [facility] [id number] [facility] 2019-12-16 13:50:00 2019-12-16 13:50:00 [facility] [id number] [facility] 2019-12-14 11:12:00 2019-12-14 11:12:00 [facility]patient [facility] [id number] [facility] 2019-12-07 12:41:00 2019-12-07 12:41:00 [facility]patient [facility] [id number] [facility] Results Test Description Test Time Test Comments Results Resul t Comments Source - CT UP EXTREM W/O CONT RT 2023-08-20 14:32:00 [facility] : 1960 Sex: M Patient Name: PANCHO PICKENS Unit No: [id number] EXAMS: CPT CODE: [id number] CT UP EXTREM W/[place] [address] TECHNIQUE: Volumetric CT data of the right wrist was obtained without use of intravenous contrast. Images were then viewed in the axial, coronal and sagittal planes. CT radiation dose optimization is achieved for this examination by the use of a CT protocol in accordance with ACR practice standards and adherence to oil field equipment mechanic supervisor's recommendations. INDICATION: RIGHT WRIST FRACTURE COMPARISON: None. FINDINGS: Cortical irregularity is demonstrated about the proximal aspect of the trapezium and distal scaphoid which may be secondary to degenerative change versus prior trauma. There is moderate to severe STT joint degeneration. Mild first CMC joint degenerative changes are also noted. Sclerosis of the lunate is present measuring 5 mm which may be a bone island. Carpal alignment is maintained. Facet calcifications are present. IMPRESSION: 1. Moderate to severe STT joint degenerative changes. 2. Cortical irregularity of the distal scaphoid and proximal trapezium a be degenerative. Chronic fracture is not excluded 3. 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 AVN is not excluded. at 1432 Reported and signed by: Ricardo Mcbride M.D. CC: Og Dick MD Technologist: Rohit Peña,RT(R) CTDI: DLP: Trnscrpt: 08/20/2023 (1432) t.PENNYR.[facility] NAME: PANCHO PICKENS [address] [facility] PHYS: Og Daigle MD : 1960 AGE: 63 SEX: M [place], [place] [address] LOC: Y.RAD PHONE #: [phone] EXAM DATE: 08/20/2023 STATUS: REG CLI FAX #: [phone] RAD #: D/C DT PAGE 1 Signed Report Patient Name: PANCHO PICKENS Unit No: [id number] EXAMS: CPT CODE: [id number] CT UP EXTREM W/[place] [address] (Continued) Orig Print D/T: S: 08/20/2023 (1435) [facility] NAME: PANCHO PICKENS [address] [facility] PHYS: Og Daigle MD : 1960 AGE: 63 SEX: M [place], [place] [address] LOC: Y.RAD PHONE #: [phone] EXAM DATE: 08/20/2023 STATUS: REG CLI FAX #: [phone] RAD #: D/C DT PAGE 2 Signed Report Notes Date/Time Note Provider Source 2023-09-10 07:59:00 [id number]+jAGd/9445-03-99J10:59:00 [facility]DT Operative NoteREPORT#:[id number] REPORT STATUS: SignedREPORT INITIALIZATION DATE:09/10/23 TIME: 758 PATIENT: PANCHO PICKENS UNIT #: [id number]#: [id number] ROOM/BED:: 58 AGE: 63 SEX: M ATTEND: Og Dick MDADM AUTHOR: Og Dick MDREPT SERVICE DT/TIME: 09/02/23 0759* ALL edits or amendments must be made on the electronic/computer document * Operative Report Operative NoteNote:ADMITTING PHYSICIAN: ATTENDING PHYSICIAN: Og Dick MD OPERATION DATE: 09/02/23 PREOPERATIVE DIAGNOSIS: 1. RIGHT STT JOINT OSTEOARTHRITIS POSTOPERATIVE DIAGNOSIS: 1. RIGHT STT JOINT OSTEOARTHRITIS PROCEDURE: 1. ARTHROPLASTY STT JOINT RIGHT WRIST WITH PLACEMENT PYROSPHERE SURGEON: Og Dick M.D. MARKETING DEVELOPMENT MANAGER: SOWMYA Mantilla. Herbert Champion MD. The skilled assistance of SOWMYA Mantilla and Herbert Champion MD was necessary during this procedure. She assisted with every aspect of the operation including, but not limited to, proper and safe positioning of the patient, obtaining adequate surgical exposure, the continual process of hemostasis during the procedure itself in addition to surgical wound closure and removal of the patient from the operating table and returning the patient back to [facility]. Her assistance allowed me to perform the most sensitive and technical portions of this operation using 2 hands, thus enhancing patient safety. This would not be possible without the help of a skilled medical record assistant familiar with the procedure and capable of safely performing the aforementioned tasks. Our facility is not a teaching hospital, and as such, no surgical residents or interns were available to assist. ANESTHESIA: General. ESTIMATED BLOOD LOSS: Minimal. COMPLICATIONS: None. DISPOSITION: Awake to PACU. FINDINGS: SEVERE STT JOINT OSTEOARTHRITIS INDICATIONS FOR PROCEDURE: This is a 63-year-old male with a history of right wrist STT joint arthritis that on imaging shows right STT joint osteoarthritis. He was counseled that an arthroplasty The risks and benefits were discussed withthe mother as well as alternative treatments. Adequate consents were obtained. SUMMARY OF PROCEDURE: The patient was identified in the preoperative area and taken to the operating room. She was placed in the supine position. General anesthesia was induced by the anesthesiology team. IV antibiotics were administered. The entire upper extremity was prepped and draped in the standard sterile surgical fashion. A tourniquet was placed over the arm, it was inflated to 250 mmHg after exsanguination using an Esmarch bandage. The patient was identified in the preoperative area and taken to the operating room. He was placed in the supine position. General anesthesia was induced by the anesthesiology team. IV antibiotics were administered. The entire upper extremity was prepped and draped in the standard surgical fashion. A transverse incision was placed on the dorsal aspect of the wrist over the STT joint. Skin and subcutaneous tissues were sharply divided. Full-thickness flaps were elevated. Superficial veins and nerves were dissected and kept out of harm's way. The radial artery was dissected. Multiple of its branches were dissected, coagulated and divided. The radial artery was placed out of harm's way. A longitudinal capsulotomy was then performed exposing the STT joint. There was a severe loss of cartilage as well as narrowing of the joint. A small hilda was introduced into the STT joint. Its position was controlled on fluoroscopy and burring of the distal aspect of the scaphoid and the proximal aspect of the trapezium and trapezoid was performed. Using the sizer from to the Orthosphere set, the adequate implant was measured and the smallest size was used. The raspwas used both proximally and distally. The trial implant was inserted and this was very stable and in the perfect position. Fluoroscopy revealed good position of the implant. The trial implant was removed and the final implant was inserted. A copious irrigation was performed. The capsule was closed using 0 Vicryl and the wound was closed in a layered fashion using 3-0 Vicryl and 4-0 Monocryl. Steri-Strips were applied. A local block was performed using 0.25% Marcaine. The patient was placed in a short-arm thumb spica splint. The tourniquet was deflated. She was then awakened and then taken to the recovery room in a good and stable condition. She tolerated well the procedure with no complications. Date: 09/02/23 at 0800 [facility] #:[id number] OF REPORT OPOperative [id number]:59:00Y.[id number] ilable for patient [id number]:00:21 [facility] 2023-08-25 10:38:00 [id number]/[id number]/[id number]:38:09875 0-0005 [facility] [place] [id number] PATIENT NAME: PANCHO PICKENS ADMIT DATE: ACCOUNT NO: [id number] ROOM NO: AGE: 63 REPORT TYPE: ELECTROCARDIOGRAM SEX: M ADMITTING PHYSICIAN: ATTENDING PHYSICIAN:Og Dick MD Order:[id number] Reason : PREOP CLEARANCE AGE >50 Test Date/Time Stamp:FriAug 25 2023 10:38:15Blood Pressure : / mmHGVent. Rate : 055 BPM Atrial Rate : 055 BPM P-R Int : 162 ms QRS Dur : 076 ms QT Int : 430 ms P-R-T Axes : 029 -08 -50 degrees QTc Int : 411 ms Sinus bradycardiaT wave abnormality, consider anterolateral ischemiaAbnormal ECGNo previous ECGs availableConfirmed by HALEY MUSTAFA MD ([id number]) on 08/28/2023 11:32:41 AM Referred By: Og Dick Confirmed by:HALEY MUSTAFA MD PATIENT NAME: PANCHO PICKENS .[id number] AVAvailable for patient [id number]:33:13 [facility]
[2024-02-20 10:37] LABS: Absolute Monocytes 0.6 K/uL (0.1-1.3); Absolute Neutrophil 6.1 K/uL (1.8-8.0); Basophils % 0.4 % (0-1.3); Eosinophils % 0.2 % (0-4.4); Hemoglobin 16.6 g/dL (13.6-17.9); MCH 33.2 pg (27.0-35.0); MCHC 33.9 g/dL (32.0-36.0); MCV 97.7 fL (80-100); MPV 8.1 fL (7.6-11.3); Monocytes % 7.7 % (3.3-12.3); Neutrophils % 78.7 % (41.7-73.7); Nucleated Red Blood Cells % 0.1 % (0-0); Platelets 238 thou/uL (152-406); RBC Red Blood Cell Count 5.01 M/uL (4.33-5.43); Red Cell Distribution Width 14.3 % (12.1-15.2)
[2024-02-20 10:46] LABS: Albumin 3.8 g/dL (3.4-5.0); Albumin/Globulin Ratio 0.9 (1.1-1.8); Anion Gap 8.9 mEq/L (5.0-15.0); Bilirubin Total 0.3 mg/dL (0.2-1.0); Globulin 4.4 g/dL (2.3-3.5); Phenytoin (Dilantin) Level 3.2 mcg/mL (10.0-20.0); Potassium 3.9 mEq/L (3.5-5.1); Protein, Total 8.2 g/dL (6.4-8.2)
[2024-02-20] MEDS ORDERED: NA CHLORIDE 0.9% 1,000 ML ONE (12:19)
[2024-02-20] MEDS ORDERED: PHENYTOIN ER 100 MG CAP PO ONE (12:35)
[2024-02-20 13:44] LABS: Specific Gravity 1.008 (1.005-1.030); Urine Bilirubin NEGATIVE (Negative); Urine Blood Negative (Negative); Urine Clarity Clear (Clear); Urine Color Light-Yellow (Yellow); Urine Glucose NEGATIVE (Negative); Urine Ketones NEGATIVE (Negative); Urine Microscopic Reflex YN NO UMIC; Urine Nitrite NEGATIVE (Negative); Urine Protein NEGATIVE (Negative); Urine Urobilinogen Normal (Normal)
--- NOTE | 2024-02-20 14:13 | ER ---
Nurse's Notes [facility] Name: James Pickens Age: 63 yrs Sex: Male : 1960 Arrival Date: 02/20/2024 Time: 09:53 Bed 18 Private MD: Diagnosis: Other seizures Presentation: 02/19 10:03 Chief complaint: Patient states: chills started yesterday, had 4 seizures back to back ko1 yesterday and then uncontrolled diarrhea this morning. Has a hx of sz and takes phenytoin. Coronavirus screen: At this time, the client does not indicate any symptoms associated with coronavirus-19. Ebola Screen: No symptoms or risks identified at this time. Initial Sepsis Screen: Does the patient meet any 2 criteria? No. Patient's initial sepsis screen is negative. Does the patient have a suspected source of infection? No. Patient's initial sepsis screen is negative. Risk Assessment: Do you want to hurt yourself or someone else? Patient reports no desire to harm self or others. Onset of symptoms was February 20, 2024. 10:03 Method Of Arrival: Ambulatory ko1 10:03 Acuity: UJAREZ 3 ko1 Triage Assessment: 10:05 General: Appears in no apparent distress. uncomfortable, Behavior is calm, cooperative, ko1 appropriate for age. Pain: Denies pain. Historical: - Allergies: 10:05 No Known Allergies; ko1 - Home Meds: 10:05 Phenytoin 100mg Oral 3 tabs nightly for epilepsy [Active]; ko1 - PMHx: 10:05 Seizure; Pt reports hx of epilepsy; ko1 - PSHx: 10:05 None; ko1 - Immunization history:: Adult Immunizations up to date. - Infectious Disease History:: Denies. - Social history:: Smoking status: Patient denies any tobacco usage or history of. Screenin:19 [facility] ED Fall Risk Assessment (Adult) History of falling in the last 3 months, ap3 including since admission Yes- physiologic fall (2 pts) Confusion or Disorientation No (0 pts) Intoxicated or Sedated No (0 pts) Impaired Gait No (0 pts) Mobility Assist Device Used No (0 pt) Altered Elimination No (0 pt) Score/Fall Risk Level 0 - 2 = Low Risk Oriented to surroundings, Maintained a safe environment, Educated pt \T\ family on fall prevention, incl call for assistance when getting out of bed, Assessed \T\ reinforced patient's understanding of fall precautions, Provided non-skid footwear, Hourly rounding (assess needs \T\ fall precautionary measures) done, Used ambulatory aids as needed (educated on \T\ assisted with), Used gait belt as appropriate. Abuse screen: Denies threats or abuse. Nutritional screening: No deficits noted. Tuberculosis screening: No symptoms or risk factors identified. Assessment: 10:19 General: Appears in no apparent distress. Behavior is calm, cooperative, appropriate ap3 for age. Pain: Denies pain. Neuro: Level of Consciousness is awake, alert, obeys commands, Oriented to person, place, time, situation, Appropriate for age. Neuro: Reports seizure activity yesterday. Cardiovascular: Patient's skin is warm and dry. Respiratory: Airway is patent Respiratory effort is even, unlabored, Respiratory pattern is regular, symmetrical. 14:23 Reassessment: Patient and/or family updated on plan of care and expected duration. Pain ap3 level reassessed. Patient is alert, oriented x 3, equal unlabored respirations, skin warm/dry/pink. Patient states feeling better. Patient states symptoms have improved. Vital Signs: 10:03 BP 147 / 90; Pulse 86; Resp 18; Temp 98.4(O); Pulse Ox 99% on R/A; ko1 12:08 BP 127 / 78; Pulse 86; Resp 16; Pulse Ox 96% on R/A; ap3 13:00 BP 121 / 75; Pulse 76; Resp 18; Pulse Ox 96% ; ap3 14:21 BP 113 / 68; Pulse 75; Resp 16; Temp 97.9(TE); Pulse Ox 97% on R/A; Pain 0/10; ap3 14:21 Pain Scale: Adult ap3 ED Course: 09:57 Patient arrived in ED. mg5 09:59 Jeff Vega DO is Attending Physician. ms3 10:04 Triage completed. ko1 10:05 Arm band placed on right wrist. Patient placed in an exam room, on a stretcher, on ko1 ekg monitor tech, on pulse oximetry, Patient notified of wait time. 10:07 Sailaja Owens, HELEN is Primary Nurse. ap3 10:18 Initial lab(s) drawn, by me, sent to lab. Inserted saline lock: 20 gauge in right ap3 antecubital area, using aseptic technique. Blood collected. 13:29 Urinalysis w/ reflexes Sent. ap3 14:12 Larry Schofield DO is Referral Physician. ms3 14:23 No provider procedures requiring assistance completed. IV discontinued, intact, ap3 bleeding controlled, No redness/swelling at site. Pressure dressing applied. 14:24 Patient has correct armband on for positive identification. Placed in gown. Bed in low ap3 position. Call light in reach. Side rails up X 1. Provided Education on: ed process, call reardon. Client placed on continuous cardiac and pulse oximetry monitoring. NIBP monitoring applied. Door closed. Noise minimized. Moved to private room. Warm blanket given. PO fluids given. Administered Medications: 12:24 Drug: NS 0.9% IV 1000 ml IV at 1 bolus Per protocol; 1000 mL bolus Route: IV; Rate: 1 ap3 bolus; Site: right antecubital; Delivery: Primary tubing; 13:29 Follow up: Response: No adverse reaction; IV Status: Completed infusion; IV Intake: ap3 1000ml 12:43 Drug: Phenytoin PO 500 mg PO once Route: PO; ap3 13:28 Follow up: Response: No adverse reaction ap3 Medication: 14:24 VIS not applicable for this client. ap3 Intake: 13:29 IV: 1000ml; Total: 1000ml. ap3 Outcome: 14:12 Discharge ordered by . ms3 14:24 Discharged to home ambulatory, ap3 14:24 Condition: stable 14:24 Discharge instructions given to patient, Instructed on discharge instructions, follow up and referral plans. Demonstrated understanding of instructions, follow-up care, 14:31 Patient left the ED. ap3 Signatures: Sailaja Owens, RN RN ap3 Jeff Vega DO DO ms3 Jolene Sarmiento, RN RN ko1 Nga Pretty mg5
--- NOTE | 2024-02-20 14:13 | EDPHYS ---
Physician Documentation [facility] Name: James Pickens Age: 63 yrs Sex: Male : 1960 Arrival Date: 02/20/2024 Time: 09:53 Bed 18 Private MD: ED Physician Jeff Vega HPI: 02/19 10:05 This 63 yrs old Male presents to ER via Ambulatory with complaints of Chills, ms3 Lack Of Bladder Control. 10:06 63-year-old male with past medical history of seizures presents to the emergency ca3 department for chills yesterday afternoon, 4 seizures yesterday, and diarrhea that began this morning. Patient denies pain at this time. Patient denies urinary frequency, dysuria, hematuria, cough, shortness of breath. Historical: - Allergies: 10:05 No Known Allergies; ko1 - Home Meds: 10:05 Phenytoin 100mg Oral 3 tabs nightly for epilepsy [Active]; ko1 - PMHx: 10:05 Seizure; Pt reports hx of epilepsy; ko1 - PSHx: 10:05 None; ko1 - Immunization history:: Adult Immunizations up to date. - Infectious Disease History:: Denies. - Social history:: Smoking status: Patient denies any tobacco usage or history of. ROS: 10:06 Cardiovascular: Negative for chest pain, and palpitations. Respiratory: Negative for ms3 shortness of breath, cough, wheezing, and pleuritic chest pain, 10:06 Constitutional: Positive for chills, 10:06 Abdomen/GI: Positive for diarrhea, Negative for abdominal pain, nausea, vomiting, 10:06 Neuro: Positive for seizure activity, Exam: 10:06 Constitutional: This is a well developed, well nourished patient who is awake, alert, ms3 and in no acute distress. Head/Face: Normocephalic, atraumatic. Chest/axilla: Normal chest wall appearance and motion. Nontender with no deformity. Cardiovascular: Regular rate and rhythm with a normal S1 and S2. No gallops, murmurs, or rubs. Normal PMI, no JVD. No pulse deficits. Respiratory: Lungs have equal breath sounds bilaterally, clear to auscultation and percussion. No rales, rhonchi or wheezes noted. No increased work of breathing, no retractions or nasal flaring. Abdomen/GI: Soft, non-tender, with normal bowel sounds. No distension or tympany. No guarding or rebound. No evidence of tenderness throughout. Back: No spinal tenderness. No costovertebral tenderness. Full range of motion. Skin: Warm, dry with normal turgor. Normal color with no rashes, no lesions, and no evidence of cellulitis. MS/ Extremity: Pulses equal, no cyanosis. Neurovascular intact. Full, normal range of motion. Vital Signs: 10:03 BP 147 / 90; Pulse 86; Resp 18; Temp 98.4(O); Pulse Ox 99% on R/A; ko1 12:08 BP 127 / 78; Pulse 86; Resp 16; Pulse Ox 96% on R/A; ap3 13:00 BP 121 / 75; Pulse 76; Resp 18; Pulse Ox 96% ; ap3 14:21 BP 113 / 68; Pulse 75; Resp 16; Temp 97.9(TE); Pulse Ox 97% on R/A; Pain 0/10; ap3 14:21 Pain Scale: Adult ap3 MDM: 10:04 Patient medically screened. ms3 10:06 Differential Diagnosis UTI versus viral illness versus seizure. ms3 12:24 Management of patient was discussed with the following: Russian Teacher: Dr Nichols- ms3 recommends 500 mg PO at this time and patient to increase Phenytoin to 200 mg BID. 17:10 Data reviewed: vital signs, nurses notes, and as a result, I will discharge patient. I ms3 considered the following discharge prescriptions or medication management in the emergency department Medications were administered in the Emergency Department. See MAR. Counseling: I had a detailed discussion with the patient and/or guardian regarding the historical points, exam findings, and any diagnostic results supporting the discharge/admit diagnosis, lab results, the need for outpatient follow up, to return to the emergency department if symptoms worsen or persist or if there are any questions or concerns that arise at home. Special discussion: I discussed with the patient/guardian in detail that at this point there is no indication for admission to the hospital. It is understood, however, that if the symptoms persist or worsen the patient needs to return immediately for re-evaluation. ED course: Discussed case with Dr. Nichols and patient's phenytoin increased to 200 mg twice daily. Patient verbalizes and understands change in regimen. 500 mg p.o. phenytoin given in the emergency department. Patient to follow-up with Dr. Nichols in 2 to 3 days. Patient understands and agrees with plan. All questions were answered. Return precautions discussed include worsening symptoms, or any other concerns.. 02/19 10:05 Order name: CBC with Diff; Complete Time: 12:17 ms3 02/19 10:05 Order name: CMP; Complete Time: 12:17 ms3 02/19 10:05 Order name: Urinalysis w/ reflexes; Complete Time: 13:45 ms3 02/19 10:05 Order name: Phenytoin (dilantin); Complete Time: 12:17 ms3 02/19 10:05 Order name: IV Saline Lock; Complete Time: 10:20 ms3 02/19 10:05 Order name: Labs collected and sent; Complete Time: 10:20 ms3 Administered Medications: 12:24 Drug: NS 0.9% IV 1000 ml IV at 1 bolus Per protocol; 1000 mL bolus Route: IV; Rate: 1 ap3 bolus; Site: right antecubital; Delivery: Primary tubing; 13:29 Follow up: Response: No adverse reaction; IV Status: Completed infusion; IV Intake: ap3 1000ml 12:43 Drug: Phenytoin PO 500 mg PO once Route: PO; ap3 13:28 Follow up: Response: No adverse reaction ap3 Disposition Summary: 02/20/24 14:12 Discharge Ordered Notes: Location: Home ms3 Condition: Stable ms3 Diagnosis - Other seizures ms3 Followup: ms3 - With: Larry Schofield DO - When: 2 - 3 days - Reason: Recheck today's complaints Discharge Instructions: - Discharge Summary Sheet ms3 - Seizure, Adult ms3 Forms: - Medication Reconciliation Form ms3 - Antibiotic Education ms3 - Prescription Opioid Use ms3 - Patient Portal Instructions ms3 - Leadership Thank You Letter ms3 Signatures: Dispatcher [employer] Sailaja Ybarra, RN RN ap3 Jeff Vega DO DO ms3 Jolene Sarmiento RN RN ko1 Corrections: (The following items were deleted from the chart) 10:05 10:05 CBC+H.LAB.BRZ ordered. EDMS EDMS 10:05 10:05 COMPREHENSIVE METABOLIC PANEL+C.LAB.BRZ ordered. EDMS EDMS 10:05 10:05 Urinalysis+U.LAB.BRZ ordered. EDMS EDMS 10:05 10:05 PHENYTOIN (DILANTIN)+C.LAB.BRZ ordered. EDMS EDMS 10:07 10:06 Constitutional: This is a well developed, well nourished patient who is awake, ms3 alert, and in no acute distress. Head/Face: Normocephalic, atraumatic. Chest/axilla: Normal chest wall appearance and motion. Nontender with no deformity. Cardiovascular: Regular rate and rhythm with a normal S1 and S2. No gallops, murmurs, or rubs. Normal PMI, no JVD. No pulse deficits. Respiratory: Lungs have equal breath sounds bilaterally, clear to auscultation and percussion. No rales, rhonchi or wheezes noted. No increased work of breathing, no retractions or nasal flaring. Abdomen/GI: Soft, non-tender, with normal bowel sounds. No distension or tympany. No guarding or rebound. No evidence of tenderness throughout. Skin: Warm, dry with normal turgor. Normal color with no rashes, no lesions, and no evidence of cellulitis. MS/ Extremity: Pulses equal, no cyanosis. Neurovascular intact. Full, normal range of motion. ms3
[2024-02-20 15:24] VITALS: BP 113/68; TEMP 97.9; O2SAT 97
== END 2024-02-20 14:31 | disposition home or self-care (01) ==
LOC: ER 09:53
DX: G40.89 Other seizures (principal); R19.7 Diarrhea, unspecified
CPT/HCPCS: 85025; 36415; 80185; 81003; 80053; 96360; 99284; J7030